=== PATIENT | female | born 1965 | race Caucasian/White ===

== ENCOUNTER 2017-02-07 05:32 | Day surgery (SDC) | payer OTHER ==
[~2017-02-07 05:32] MED LIST: ASPIR 8181 M1 PO; ASPIRIN81 M1 PO; AUGMENTIN 875-1 EAC2 PO; CULTURELLE1 EAC2 PO; GLUCOSAMINE1000 M1 PO; HYDROCHLOROTHIA25 M1 PO; LEVAQUIN750 M1 PO; LEVOTHYROXINE112 MC3 PO; LEVOTHYROXINE75 MC3 PO; MULTIPLE VITAM1 EAC3 PO; NEURONTIN400 M1 PO; NUCYNTA50 M1 PO; POTASSIUM CHLO10 ME2 PO; STOP HOME MEDICATION; TYLENOL ARTHRI650 M1 PO; VANCOMYCIN IV; ZYRTEC1010 PO
== END 2017-02-07 12:25 ==
LOC: SHSB 05:32 → ORW 07:20 → PACU 08:53 → SHSA 09:55
PROC: 0HBT0ZZ Excision of Right Breast, Open Approach (ICD-10-PCS; principal; 2017-02-07)
PROC: 0HHU0NZ Insertion of Tissue Expander into Left Breast, Open Approach (ICD-10-PCS; principal; 2017-02-07)
PROC: 0JPT3XZ Removal of Tunneled Vascular Access Device from Trunk Subcutaneous Tissue and Fascia, Percutaneous Approach (ICD-10-PCS; principal; 2017-02-07)
DX: Z45.2 Encounter for adjustment and management of vascular access device (principal); Z42.1 Encounter for breast reconstruction following mastectomy; I10 Essential (primary) hypertension; Z85.3 Personal history of malignant neoplasm of breast; E66.9 Obesity, unspecified; Z79.899 Other long term (current) drug therapy; Z88.8 Allergy status to other drugs, medicaments and biological substances; Z98.890 Other specified postprocedural states
CPT/HCPCS: J0690; J3010

== ENCOUNTER 2017-02-17 17:41 | Inpatient (IN) | payer OTHER ==
[2017-02-17 20:45] LABS: BASO % 0.2 % (0-2); EOS % 1.2 % (0-7); EOSINOPHIL ABSOLUTE COUNT 0.1 tho/cmm (0.0-0.7); HCT-HEMATOCRIT 37.8 % (34.0-49.0); HGB-HEMOGLOBIN 13.3 gm/dl (12.0-15.5); IMMATURE GRANULOCYTES ABSOLUTE 0.01 tho/cmm (0-0.03); IMMATURE GRANULOCYTES PERCENT 0.1 % (0-0.3); LYMPH ABSOLUTE COUNT 2.1 tho/cmm (0.8-4.5); MCH (MEAN CORPUSCULAR HGB) 29.6 pg (28.0-32.0); MCHC MEAN CORPUSCULAR HGB CONC 35.2 % (32.0-36.0); MEAN PLATELET VOLUME 10.7 cmc (9.4-12.4); MONO % 5.3 % (0-12); MONOCYTE ABSOLUTE COUNT 0.5 tho/cmm (0.0-1.2); NEUTROPHIL ABSOLUTE COUNT 6.5 tho/cmm (1.6-8.0); NEUTROPHIL-AUTOMATED 6.5 tho/cmm (1.6-8.0); NEUTROPHILS % 70.2 % (40-80); PLATELET COUNT 215 tho/cmm (150-450); RED CELL DISTRIBUTION WIDTH 12.6 % (12.4-16.4); WHITE BLOOD COUNT 9.2 tho/cmm (4.0-10.0)
[2017-02-17] MEDS ORDERED: TAMOXIFEN CITRA20 M1 PO (22:57)
[2017-02-17] MEDS ORDERED: ALLEGRA ALLERG180 M1 PO (22:58)
--- NOTE | 2017-02-18 03:44 | NUR ---
VIRTUAL CARE NOTE: ASSESSMENT DEFERRED. PT. SLEEPING.
[2017-02-18 13:31] LABS: ALBUMIN 2.7 g/dl (3.5-5.0); ANION GAP 11 mmol/L (0-20); BLOOD UREA NITROGEN 10 mg/dl (6-24); CARBON DIOXIDE-VENOUS 27 mmol/L (22-32); CHLORIDE 102 mmol/l (96-110); CREATINE PHOSPHOKINASE (CPK) 33 U/L (21-215); CREATININE 0.81 mg/dl (0.50-1.10); GLUCOSE 120 mg/dL (70-110); PHOSPHOROUS 3.7 mg/dl (2.5-4.9); POTASSIUM 3.1 mmol/L (3.7-5.1); SODIUM 137 mmol/L (135-145); eGFR VALUE FOR BLACK >90 mL/Min
[2017-02-18] MEDS ORDERED: CUBICIN500 MG (13:36)
[2017-02-18] MEDS ORDERED: SODIUM CHLORIDE (13:41)
--- NOTE | 2017-02-18 15:06 | NUR ---
1442-VIRTUAL NURSE NOTE-DISMISSAL TEACHING DONE. PATIENT STATES SHE IS VERY FAMILIAR WITH BEN DRAIN, HOW TO DRAIN BULB AND STRIP TUBING. INSTRUCTED ON HOME INFUSION THERAPY DAILY. PT TO CALL DR OH OFFICE TO MAKE FOLLOWUP APPT, DUE TO OFFICE IS CLOSED AT THIS TIME. NO OTHER QUESTIONS. Ida AGUILAR RN
== END 2017-02-18 16:10 | DRG 863 ==
LOC: 5WD 17:41
PROVIDERS: Internal Medicine Infectious Disease; ADMIT Plastic Surgery
PROC: 02HV33Z Insertion of Infusion Device into Superior Vena Cava, Percutaneous Approach (ICD-10-PCS; principal; 2017-02-17)
DX: T81.4XXA Infection following a procedure, initial encounter (principal); E03.9 Hypothyroidism, unspecified; N61.0 Mastitis without abscess; Z85.3 Personal history of malignant neoplasm of breast; Z90.12 Acquired absence of left breast and nipple
CPT/HCPCS: C1751; J0878; J3370